=== PATIENT | female | born 1960 | race Caucasian/White ===

== ENCOUNTER 2017-07-26 14:54 | Inpatient (IN) | payer OTHER ==
[~2017-07-26] VITALS: Ht 162.6 cm; Wt 80.8 kg
[2017-07-26 15:33] LABS: BASOPHIL % 0.3 % (0-2); PLATELET COUNT 290 x10^3mcL (130-400); RED CELL DISTRIBUTION WIDTH 13.2 % (11.5-14.5)
[2017-07-26 15:44] LABS: CALCIUM 9.6 mg/dL (8.5-10.1); CARBON DIOXIDE 26.4 mmol/L (21-32); CHLORIDE SERUM 97 mmol/L (98-107); CREATININE SERUM 0.7 mg/dL (0.6-1.0); GFR1 > 60 mL/min; GLUCOSE SERUM 119 mg/dL (74-106); POTASSIUM SERUM 3.6 mmol/L (3.5-5.1); SODIUM SERUM 134 mmol/L (136-145)
[2017-07-26 15:51] LABS: ALBUMIN 3.7 g/dL (3.4-5.0); ALKALINE PHOSPHATASE 77 U/L (46-116); ALT/SGPT 51 U/L (14-59); AST/SGOT 49 U/L (15-37)
[2017-07-26 15:52] LABS: AMPHETAMINE QUAL UR NONE DETECTED (NEG <=1000)
[2017-07-26 15:53] LABS: TOTAL PROTEIN, SERUM 8.5 g/dL (6.4-8.2)
[2017-07-26 19:27] LABS: MAGNESIUM 1.7 mg/dL (1.8-2.4); PHOSPHOROUS 3.7 mg/dL (2.5-4.9)
[2017-07-26] MEDS ORDERED: HCTZ/LISINOPRIL1 TAB PO (19:29)
[2017-07-26] MEDS ORDERED: TRAZODONE50 M1 PO (19:29)
[2017-07-26 19:30] LABS: CHOLESTEROL/HDL RATIO 2.7
[2017-07-26] MEDS ORDERED: PAXIL CR25 MG PO (19:30)
[2017-07-26 19:35] LABS: T3 TOTAL 1.76 ng/mL
[2017-07-26 19:39] LABS: FREE T4 1.39 ng/dL (0.76-1.46); FREE THYROXINE INDEX 4.4 ug/dL (1.4-4.5); T4(THYROXINE) 11.1 ug/dL (4.7-13.3)
[2017-07-26 19:41] LABS: microscopic required? YES
[2017-07-26 19:42] LABS: urine erythrocyte NEGATIVE (NEGATIVE)
[2017-07-26 20:00] VITALS: BP 138/59
[2017-07-27 05:35] VITALS: BP 121/62
[2017-07-27 06:09] LABS: BASOPHIL % 0.6 % (0-2); PLATELET COUNT 223 x10^3mcL (130-400); RED CELL DISTRIBUTION WIDTH 13.1 % (11.5-14.5)
[2017-07-27 06:14] LABS: CALCIUM 8.5 mg/dL (8.5-10.1); CARBON DIOXIDE 29.8 mmol/L (21-32); CHLORIDE SERUM 102 mmol/L (98-107); CREATININE SERUM 0.8 mg/dL (0.6-1.0); GFR1 > 60 mL/min; GLUCOSE SERUM 104 mg/dL (74-106); MAGNESIUM 1.8 mg/dL (1.8-2.4); SODIUM SERUM 137 mmol/L (136-145)
[2017-07-27 08:49] VITALS: BP 123/69
[2017-07-27 12:03] VITALS: BP 114/66
[2017-07-27 17:24] VITALS: BP 127/77
[2017-07-27 21:41] VITALS: BP 124/51
[2017-07-27 23:50] VITALS: BP 123/76
[2017-07-28 06:02] VITALS: BP 126/48
[2017-07-28 06:30] LABS: BASOPHIL % 0.3 % (0-2); PLATELET COUNT 216 x10^3mcL (130-400); RED CELL DISTRIBUTION WIDTH 13.3 % (11.5-14.5)
[2017-07-28 06:58] LABS: CALCIUM 8.3 mg/dL (8.5-10.1); CARBON DIOXIDE 25.4 mmol/L (21-32); CHLORIDE SERUM 107 mmol/L (98-107); CREATININE SERUM 0.6 mg/dL (0.6-1.0); GFR1 > 60 mL/min; GLUCOSE SERUM 163 mg/dL (74-106); POTASSIUM SERUM 3.7 mmol/L (3.5-5.1); SODIUM SERUM 138 mmol/L (136-145)
[2017-07-28 08:48] VITALS: BP 140/80
[2017-07-28 12:48] VITALS: BP 145/72
[2017-07-28] MEDS ORDERED: LIPI10 PO (13:21)
[2017-07-28] MEDS ORDERED: ECO81 PO (13:22)
[2017-07-28] MEDS ORDERED: MAC100 PO (13:24)
[2017-07-28 13:31] VITALS: BP 145/72
== END 2017-07-28 15:18 | disposition home or self-care (01) | DRG 203 ==
LOC: ED 14:54 → DU 18:08
PROVIDERS: Emergency Medicine; ADMIT Family Medicine
DX: M94.0 Chondrocostal junction syndrome [Tietze] (principal); N17.0 Acute kidney failure with tubular necrosis; N39.0 Urinary tract infection, site not specified; E83.42 Hypomagnesemia; F12.10 Cannabis abuse, uncomplicated; F41.8 Other specified anxiety disorders; I10 Essential (primary) hypertension; E78.2 Mixed hyperlipidemia; F17.210 Nicotine dependence, cigarettes, uncomplicated; F32.9 Major depressive disorder, single episode, unspecified; F41.9 Anxiety disorder, unspecified
CPT/HCPCS: 83880; 84439; 85378; J0696; J2060; J7030; Q0092

== ENCOUNTER 2017-09-27 18:30 | Emergency (ER) | payer OTHER ==
[~2017-09-27 18:30] MED LIST: ECO81 PO; HCTZ/LISINOPRIL1 TAB PO; LIPI10 PO; MAC100 PO; PAXIL CR25 MG PO; TRAZODONE50 M1 PO
[2017-09-27 19:43] VITALS: BP 150/87
== END 2017-09-27 19:43 | disposition home or self-care (01) ==
LOC: ED 18:30
DX: F10.129 Alcohol abuse with intoxication, unspecified (principal); F43.22 Adjustment disorder with anxiety; I10 Essential (primary) hypertension